=== PATIENT | male | born 1950 | race Caucasian/White ===

== ENCOUNTER 2024-06-13 11:48 | Inpatient (IN) | payer MEDICARE ==
[2024-06-13] VITALS (9 sets, daily range): BP systolic 117–146; BP diastolic 84–98; PULSE 98–121; RESP 17–28; TEMP 97.6–98.8; O2SAT 87–99
[~2024-06-13] VITALS: Ht 188 cm; Wt 117.9 kg
[2024-06-13 12:29] LABS: BASOPHILS % 0.3 % (0.0-1.0); EOSINOPHILS # (AUTO) 0.2 (0.0-0.4); EOSINOPHILS % 2.1 % (0.0-6.0); HEMATOCRIT 42.3 % (38.2-49.6); HEMOGLOBIN 13.6 g/dL (14.0-18.0); LYMPHOCYTES # (AUTO) 1.5 (1.0-3.2); LYMPHOCYTES % 21.4 % (18.0-39.1); MEAN CORPUSCULAR HEMOGLOBIN 27.7 pg (28-32); MEAN CORPUSCULAR HGB CONC 32.2 g/dL (31-35); MEAN CORPUSCULAR VOLUME 86.2 fL (81-99); MONOCYTES # (AUTO) 0.5 (0.2-0.8); MONOCYTES % 7.4 % (4.4-11.3); NEUTROPHILS # (AUTO) 4.8 (2.1-6.9); NEUTROPHILS % 68.4 % (38.7-80.0); PLATELET COUNT 154 x10e3/uL (140-360); RED BLOOD COUNT 4.91 x10e6/uL (4.3-5.7); RED CELL DISTRIBUTION WIDTH 14.6 % (11.7-14.4); WHITE BLOOD COUNT 7.02 x10e3/uL (4.8-10.8)
[2024-06-13 12:49] LABS: ALBUMIN 3.5 g/dL (3.5-5.0); ANION GAP 16.1 mmol/L (8-16); BILIRUBIN,TOTAL 1.1 mg/dL (0.2-1.2); CALCIUM 9.4 mg/dL (8.4-10.2); CREATININE, SERUM 2.18 mg/dL (0.72-1.25); MAGNESIUM 1.8 MG/DL (1.3-2.1); POTASSIUM 4.1 mmol/L (3.5-5.1)
[2024-06-13 12:50] LABS: INR 1.12; PROTHROMBIN TIME 15.1 seconds (11.9-14.5)
[2024-06-13 12:51] LABS: PARTIAL THROMBOPLASTIN TIME 27.5 seconds (23.8-35.5)
[2024-06-13] MEDS ORDERED: HEPARIN SOD/DEXTROSE 5% 25000 UNIT/250 ML BAG IV SCH (13:00)
[2024-06-13 13:03] LABS: TROPONIN I 0.656 ng/mL (0-0.300)
[2024-06-13] MEDS: HEPARIN SOD (PORCINE) 5,000 UNIT/ML VIAL IV ONE (13:12)
[2024-06-13] MEDS: AMIODARONE HCL 150 MG/100 ML BAG IV ONE (13:21)
[2024-06-13 13:28] LABS: INFLUENZA A AG NEGATIVE (NEGATIVE); INFLUENZA B AG NEGATIVE (NEGATIVE)
[2024-06-13 13:29] LABS: CORONAVIRUS COVID-19 AG NEGATIVE (NEGATIVE)
[2024-06-13] MEDS: DIGOXIN INJ 0.25 MG/ML 2 ML AMP IV ONE (13:55)
[2024-06-13] MEDS: ASPIRIN 81 MG CHEW TAB PO ONE (13:56)
[2024-06-13] MEDS: HEPARIN 25,000 UNIT/D5W 250ML 250 ML IV SCH (14:09)
[2024-06-13] MEDS: AMIODARONE 900MG 500 ML IV SCH (15:49)
[2024-06-13] MEDS: FUROSEMIDE INJ 10 MG/ML 4 ML VIAL IV SCH (17:04)
[2024-06-13] MEDS: METOPROLOL TARTRATE 25 MG TAB PO SCH (19:01)
[2024-06-13 19:57] LABS: CLARITY,URINE CLEAR (CLEAR); COLOR,URINE YELLOW (YELLOW); LEUKOCYTE ESTERASE ,URINE NEGATIVE (NEGATIVE); NITRITE,URINE NEGATIVE (NEGATIVE); PH,URINE 5.5 (5 - 7); PROTEIN,URINE DIPSTICK TRACE (NEGATIVE)
[2024-06-13 19:58] LABS: BILIRUBIN,URINE NEGATIVE (NEGATIVE); GLUCOSE, URINE NEGATIVE (NEGATIVE); KETONES,URINE NEGATIVE (NEGATIVE); URINE UROBILINOGEN 0.2 mg/dL (0.2 - 1)
[2024-06-13 20:19] LABS: TROPONIN I 0.679 ng/mL (0-0.300)
[2024-06-13 20:36] LABS: CREATININE,URINE RANDOM 188.73 mg/dL (63-166)
[2024-06-13 20:42] LABS: BACTERIA,URINE RARE /HPF; RBC,URINE 0-5 /HPF (0-5); WBC,URINE (MAN) 0-5 /HPF (0-5)
[2024-06-13] MEDS ORDERED: METOPROLOL TARTRATE INJ 1 MG/ML VIAL IV PRN (22:45)
[2024-06-13] MEDS ORDERED: ALBUTEROL/IPRATROPIUM 3 ML NEB NEB PRN (22:45)
[2024-06-13] MEDS ORDERED: DOCUSATE SODIUM 100 MG CAP PO PRN (22:45)
[2024-06-13] MEDS ORDERED: SIMETHICONE 80 MG CHEW PO PRN (22:45)
[2024-06-14] VITALS (20 sets, daily range): BP systolic 103–126; BP diastolic 78–103; PULSE 75–100; RESP 14–25; TEMP 97.8–98.6; O2SAT 97–100
[2024-06-14] MEDS: FAMOTIDINE 20 MG TAB PO ONE (06:41)
[2024-06-14 07:26] LABS: BASOPHILS % 0.4 % (0.0-1.0); EOSINOPHILS # (AUTO) 0.1 (0.0-0.4); EOSINOPHILS % 1.5 % (0.0-6.0); HEMATOCRIT 43.9 % (38.2-49.6); HEMOGLOBIN 13.9 g/dL (14.0-18.0); LYMPHOCYTES # (AUTO) 1.5 (1.0-3.2); LYMPHOCYTES % 19.3 % (18.0-39.1); MEAN CORPUSCULAR HGB CONC 31.7 g/dL (31-35); MEAN CORPUSCULAR VOLUME 88.3 fL (81-99); MONOCYTES # (AUTO) 0.6 (0.2-0.8); MONOCYTES % 7.8 % (4.4-11.3); NEUTROPHILS # (AUTO) 5.6 (2.1-6.9); NEUTROPHILS % 70.4 % (38.7-80.0); PLATELET COUNT 150 x10e3/uL (140-360); RED BLOOD COUNT 4.97 x10e6/uL (4.3-5.7); RED CELL DISTRIBUTION WIDTH 14.7 % (11.7-14.4); WHITE BLOOD COUNT 7.91 x10e3/uL (4.8-10.8)
[2024-06-14] MEDS ORDERED: FAMOTIDINE 20 MG TAB PO SCH (07:30)
[2024-06-14 08:04] LABS: ALBUMIN 3.5 g/dL (3.5-5.0); ANION GAP 17.8 mmol/L (8-16); BILIRUBIN,TOTAL 1.5 mg/dL (0.2-1.2); CALCIUM 9.3 mg/dL (8.4-10.2); CREATININE, SERUM 2.55 mg/dL (0.72-1.25); POTASSIUM 4.8 mmol/L (3.5-5.1)
[2024-06-14 08:15] LABS: MAGNESIUM 1.8 MG/DL (1.3-2.1); PHOSPHORUS 4.1 MG/DL (2.3-4.7)
[2024-06-14 08:20] LABS: CHOL/HDL RATIO 3.7 (3.9-4.7)
[2024-06-14 08:34] LABS: TROPONIN I 0.71 ng/mL (0-0.300)
[2024-06-14] MEDS: ASPIRIN 325 MG TAB EC PO SCH (09:27)
[2024-06-14] MEDS: FUROSEMIDE INJ 100 MG in SODIUM CHLORIDE 0.9% 90 ML IV SCH (09:28)
[2024-06-14] MEDS: AMIODARONE HCL 200 MG TAB PO SCH (16:40)
[2024-06-14] MEDS ORDERED: DEXTROSE 50% SYRINGE 50 ML IV PRN (22:15)
[2024-06-14] MEDS ORDERED: ALBUMIN 25% 25GM 100ML 0.25 GM/ML BTL IV STA (22:17)
[2024-06-14] MEDS: ALBUMIN 25% 25GM 100ML 0.25 GM/ML BTL IV SCH (22:51)
[2024-06-14] MEDS: INSULIN REGULAR, HUMAN 100 UNIT/1 ML SQ SCH (23:45)
[2024-06-15] VITALS (20 sets, daily range): BP systolic 119–139; BP diastolic 50–104; PULSE 39–115; RESP 16–28; TEMP 97.5–98; O2SAT 94–100
[2024-06-15] MEDS ORDERED: ALBUMIN 25% 12.5GM 0.25 GM/ML BTL IV SCH (04:00)
[2024-06-15 06:52] LABS: BASOPHILS % 0.4 % (0.0-1.0); EOSINOPHILS % 0.3 % (0.0-6.0); HEMATOCRIT 46.2 % (38.2-49.6); HEMOGLOBIN 14.2 g/dL (14.0-18.0); LYMPHOCYTES # (AUTO) 2.1 (1.0-3.2); MEAN CORPUSCULAR HEMOGLOBIN 28.3 pg (28-32); MEAN CORPUSCULAR HGB CONC 30.7 g/dL (31-35); MONOCYTES # (AUTO) 0.9 (0.2-0.8); MONOCYTES % 10.2 % (4.4-11.3); NEUTROPHILS # (AUTO) 5.9 (2.1-6.9); NEUTROPHILS % 65.7 % (38.7-80.0); PLATELET COUNT 142 x10e3/uL (140-360); RED BLOOD COUNT 5.02 x10e6/uL (4.3-5.7); WHITE BLOOD COUNT 8.96 x10e3/uL (4.8-10.8)
[2024-06-15] MEDS: ALBUMIN 25% 25GM 100ML 0.25 GM/ML BTL IV SCH (07:11)
[2024-06-15 07:21] LABS: ALBUMIN 3.6 g/dL (3.5-5.0); ALBUMIN/GLOBULIN RATIO 1.1 (0.8-2.0); ANION GAP 21.1 mmol/L (8-16); BILIRUBIN,TOTAL 1.6 mg/dL (0.2-1.2); CALCIUM 9.2 mg/dL (8.4-10.2); CREATININE, SERUM 3.48 mg/dL (0.72-1.25); POTASSIUM 5.1 mmol/L (3.5-5.1); TOTAL PROTEIN 6.8 g/dL (6.5-8.1)
[2024-06-15] MEDS ORDERED: INSULIN REGULAR, HUMAN 100 UNIT/1 ML SQ SCH (07:30)
[2024-06-15] MEDS: FAMOTIDINE 20 MG TAB PO SCH (09:28)
[2024-06-15] MEDS ORDERED: DOBUtamine HCL 500MG/D5W 250ML 250 ML IV SCH (10:45)
[2024-06-15] MEDS ORDERED: LIDOCAINE HCL 1% 30ML-PF VIAL ONE (10:54)
[2024-06-15] MEDS ORDERED: HEPARIN SOD (PORCINE) 1000 UNIT/ML SDV ONE (11:26)
[2024-06-15] MEDS: DOBUtamine HCL 500MG/D5W 250ML 250 ML IV SCH ×2 (14:34→18:55)
[2024-06-15] MEDS ORDERED: HEPARIN SOD (PORCINE) 1000 UNIT/ML SDV IV PRN (15:00)
[2024-06-15] MEDS ORDERED: MANNITOL 25% 12.5GM/50 ML VIAL IV PRN (15:00)
[2024-06-15] MEDS ORDERED: SODIUM CHLORIDE 0.9% 1000ML 2,000 ML IV PRN (15:00)
[2024-06-15] MEDS: OXYBUTYNIN CHLORIDE XL 5 MG TAB PO SCH (15:55)
[2024-06-15] MEDS ORDERED: PHENAZOPYRIDINE HCL 100 MG TAB PO SCH (17:00)
[2024-06-15] MEDS: Morphine 2mg Syringe 2 MG/ML SYR IV PRN (21:55)
[2024-06-15] MEDS: ONDANSETRON HCL INJ 2MG/ML 2ML 2 MG/ML VIAL IV PRN (21:55)
[2024-06-15] MEDS: ACETAMINOPHEN 325 MG TAB PO PRN (21:59)
[2024-06-16] VITALS (35 sets, daily range): BP systolic 110–146; BP diastolic 63–115; PULSE 78–104; RESP 15–26; TEMP 97.4–98.5; O2SAT 91–100
[2024-06-16 06:40] LABS: BASOPHILS % 0.3 % (0.0-1.0); EOSINOPHILS # (AUTO) 0.1 (0.0-0.4); EOSINOPHILS % 1.5 % (0.0-6.0); HEMATOCRIT 37.1 % (38.2-49.6); HEMOGLOBIN 12.1 g/dL (14.0-18.0); LYMPHOCYTES # (AUTO) 1.8 (1.0-3.2); LYMPHOCYTES % 27.4 % (18.0-39.1); MEAN CORPUSCULAR HGB CONC 32.6 g/dL (31-35); MEAN CORPUSCULAR VOLUME 85.9 fL (81-99); MONOCYTES # (AUTO) 0.6 (0.2-0.8); MONOCYTES % 9.1 % (4.4-11.3); NEUTROPHILS % 61.2 % (38.7-80.0); PLATELET COUNT 129 x10e3/uL (140-360); RED BLOOD COUNT 4.32 x10e6/uL (4.3-5.7); RED CELL DISTRIBUTION WIDTH 14.6 % (11.7-14.4); WHITE BLOOD COUNT 6.58 x10e3/uL (4.8-10.8)
[2024-06-16 07:15] LABS: ALBUMIN 3.6 g/dL (3.5-5.0); ALBUMIN/GLOBULIN RATIO 1.3 (0.8-2.0); ANION GAP 17.9 mmol/L (8-16); BILIRUBIN,TOTAL 1.3 mg/dL (0.2-1.2); CREATININE, SERUM 3.28 mg/dL (0.72-1.25); POTASSIUM 3.9 mmol/L (3.5-5.1); TOTAL PROTEIN 6.3 g/dL (6.5-8.1)
[2024-06-16] MEDS: OXYBUTYNIN CHLORIDE 5 MG TAB PO SCH (08:34)
[2024-06-16 10:42] LABS: HEPATITIS B CORE AB TOTAL NEGATIVE; HEPATITIS B SURFACE AG (P) NEGATIVE
[2024-06-16 10:43] LABS: HEPATITIS B SURFACE AB QUANT <3.5
[2024-06-17] VITALS (20 sets, daily range): BP systolic 97–163; BP diastolic 56–100; PULSE 81–109; RESP 12–33; TEMP 98.1–98.3; O2SAT 90–98
[2024-06-17] MEDS: SENNOSIDES 8.6 MG TAB PO SCH (08:20)
[2024-06-17] MEDS: DOCUSATE SODIUM 100 MG CAP PO SCH (08:21)
[2024-06-17] MEDS: PSYLLIUM 6GM PACKET PO SCH (08:22)
[2024-06-17] MEDS: GUAIFENESIN/CODEINE 5 ML LIQD PO PRN (10:55)
[2024-06-18] VITALS (24 sets, daily range): BP systolic 110–182; BP diastolic 72–130; PULSE 56–122; RESP 11–26; TEMP 97.6–98.4; O2SAT 90–97
[2024-06-18 06:52] LABS: BASOPHILS % 0.3 % (0.0-1.0); EOSINOPHILS # (AUTO) 0.1 (0.0-0.4); EOSINOPHILS % 1.5 % (0.0-6.0); HEMATOCRIT 36.9 % (38.2-49.6); LYMPHOCYTES # (AUTO) 1.3 (1.0-3.2); LYMPHOCYTES % 18.4 % (18.0-39.1); MEAN CORPUSCULAR HEMOGLOBIN 28.1 pg (28-32); MEAN CORPUSCULAR HGB CONC 32.5 g/dL (31-35); MEAN CORPUSCULAR VOLUME 86.4 fL (81-99); MONOCYTES # (AUTO) 0.7 (0.2-0.8); MONOCYTES % 10.8 % (4.4-11.3); NEUTROPHILS # (AUTO) 4.7 (2.1-6.9); NEUTROPHILS % 68.6 % (38.7-80.0); PLATELET COUNT 120 x10e3/uL (140-360); RED BLOOD COUNT 4.27 x10e6/uL (4.3-5.7); RED CELL DISTRIBUTION WIDTH 14.7 % (11.7-14.4); WHITE BLOOD COUNT 6.85 x10e3/uL (4.8-10.8)
[2024-06-18 07:07] LABS: ALBUMIN 3.4 g/dL (3.5-5.0); ALBUMIN/GLOBULIN RATIO 1.2 (0.8-2.0); ANION GAP 17.1 mmol/L (8-16); BILIRUBIN,TOTAL 1.7 mg/dL (0.2-1.2); CALCIUM 9.3 mg/dL (8.4-10.2); CREATININE, SERUM 2.38 mg/dL (0.72-1.25); POTASSIUM 4.1 mmol/L (3.5-5.1); TOTAL PROTEIN 6.3 g/dL (6.5-8.1)
[2024-06-18 07:27] LABS: MAGNESIUM 1.8 MG/DL (1.3-2.1); PHOSPHORUS 3.4 MG/DL (2.3-4.7)
[2024-06-18] MEDS ORDERED: ALBUMIN 25% 12.5GM 0.25 GM/ML BTL IV PRN (09:15)
[2024-06-18] MEDS ORDERED: HEPARIN SOD (PORCINE) 1000 UNIT/ML SDV IV PRN (09:15)
[2024-06-18] MEDS: HEPARIN 25,000 UNIT/D5W 250ML 250 ML IV SCH (09:30)
[2024-06-19] VITALS (12 sets, daily range): BP systolic 117–141; BP diastolic 64–93; PULSE 86–103; RESP 12–21; TEMP 97.5–98.5; O2SAT 92–99
[2024-06-20] VITALS (8 sets, daily range): BP systolic 110–133; BP diastolic 68–89; PULSE 86–96; RESP 15–20; TEMP 97.7–97.9; O2SAT 95–99
[2024-06-20 05:39] LABS: BASOPHILS % 0.3 % (0.0-1.0); EOSINOPHILS # (AUTO) 0.2 (0.0-0.4); EOSINOPHILS % 2.7 % (0.0-6.0); HEMATOCRIT 37.3 % (38.2-49.6); HEMOGLOBIN 12.3 g/dL (14.0-18.0); LYMPHOCYTES # (AUTO) 1.6 (1.0-3.2); LYMPHOCYTES % 22.4 % (18.0-39.1); MEAN CORPUSCULAR HEMOGLOBIN 28.5 pg (28-32); MEAN CORPUSCULAR VOLUME 86.5 fL (81-99); MONOCYTES # (AUTO) 0.8 (0.2-0.8); MONOCYTES % 11.2 % (4.4-11.3); NEUTROPHILS # (AUTO) 4.5 (2.1-6.9); PLATELET COUNT 122 x10e3/uL (140-360); RED BLOOD COUNT 4.31 x10e6/uL (4.3-5.7); RED CELL DISTRIBUTION WIDTH 14.5 % (11.7-14.4); WHITE BLOOD COUNT 7.14 x10e3/uL (4.8-10.8)
[2024-06-20 06:24] LABS: ALBUMIN 3.2 g/dL (3.5-5.0); BILIRUBIN,TOTAL 1.3 mg/dL (0.2-1.2); CALCIUM 9.6 mg/dL (8.4-10.2); CREATININE, SERUM 2.47 mg/dL (0.72-1.25); MAGNESIUM 1.9 MG/DL (1.3-2.1); PHOSPHORUS 4.2 MG/DL (2.3-4.7); TOTAL PROTEIN 6.4 g/dL (6.5-8.1)
[2024-06-20] MEDS: SODIUM CHLORIDE 0.9% 1000ML 2,000 ML ONE (07:41)
[2024-06-20] MEDS: INSULIN LISPRO 100 UNIT/1 ML 3ML VIAL SQ SCH (08:13)
[2024-06-20] MEDS: Morphine 2mg Syringe 2 MG/ML SYR IV PRN (15:33)
[2024-06-21] VITALS (12 sets, daily range): BP systolic 107–130; BP diastolic 69–86; PULSE 84–104; RESP 17–20; TEMP 97.5–97.8; O2SAT 97–100
[2024-06-21 07:09] LABS: ANION GAP 17.4 mmol/L (8-16); CALCIUM 9.3 mg/dL (8.4-10.2); CREATININE, SERUM 2.51 mg/dL (0.72-1.25); POTASSIUM 4.4 mmol/L (3.5-5.1)
[2024-06-21] MEDS: SODIUM CHLORIDE 0.9% 1000ML 1,000 ML IV SCH (08:40)
[2024-06-21] MEDS: FUROSEMIDE INJ 10 MG/ML 2 ML VIAL IV ONE (15:05)
[2024-06-22] VITALS (10 sets, daily range): BP systolic 109–143; BP diastolic 68–93; PULSE 87–96; RESP 18; TEMP 97.3–97.9; O2SAT 96–100
[2024-06-22] MEDS: MELATONIN 3 MG TAB PO PRN (00:51)
[2024-06-22 06:42] LABS: BASOPHILS % 0.4 % (0.0-1.0); EOSINOPHILS # (AUTO) 0.2 (0.0-0.4); HEMATOCRIT 36.6 % (38.2-49.6); HEMOGLOBIN 11.9 g/dL (14.0-18.0); LYMPHOCYTES # (AUTO) 1.5 (1.0-3.2); LYMPHOCYTES % 21.2 % (18.0-39.1); MEAN CORPUSCULAR HEMOGLOBIN 28.6 pg (28-32); MEAN CORPUSCULAR HGB CONC 32.5 g/dL (31-35); MONOCYTES # (AUTO) 0.8 (0.2-0.8); MONOCYTES % 11.7 % (4.4-11.3); NEUTROPHILS # (AUTO) 4.4 (2.1-6.9); NEUTROPHILS % 63.1 % (38.7-80.0); PLATELET COUNT 126 x10e3/uL (140-360); RED BLOOD COUNT 4.16 x10e6/uL (4.3-5.7); RED CELL DISTRIBUTION WIDTH 14.4 % (11.7-14.4); WHITE BLOOD COUNT 7.02 x10e3/uL (4.8-10.8)
[2024-06-22 07:08] LABS: ANION GAP 16.8 mmol/L (8-16); CREATININE, SERUM 2.47 mg/dL (0.72-1.25); POTASSIUM 4.8 mmol/L (3.5-5.1)
[2024-06-22] MEDS: FUROSEMIDE INJ 10 MG/ML 4 ML VIAL IV ONE (09:31)
[2024-06-23] VITALS (12 sets, daily range): BP systolic 105–153; BP diastolic 78–94; PULSE 48–102; RESP 17–21; TEMP 97.6–97.9; O2SAT 97–100
[2024-06-23 14:47] LABS: ANION GAP 16.6 mmol/L (8-16); CALCIUM 9.4 mg/dL (8.4-10.2); CREATININE, SERUM 2.33 mg/dL (0.72-1.25); POTASSIUM 4.6 mmol/L (3.5-5.1)
[2024-06-24] VITALS (10 sets, daily range): BP systolic 101–140; BP diastolic 66–84; PULSE 51–100; RESP 16–20; TEMP 97.5–98; O2SAT 93–100
[2024-06-24 06:51] LABS: BASOPHILS % 0.3 % (0.0-1.0); EOSINOPHILS # (AUTO) 0.2 (0.0-0.4); EOSINOPHILS % 2.1 % (0.0-6.0); HEMATOCRIT 34.9 % (38.2-49.6); HEMOGLOBIN 11.4 g/dL (14.0-18.0); LYMPHOCYTES # (AUTO) 1.5 (1.0-3.2); LYMPHOCYTES % 19.5 % (18.0-39.1); MEAN CORPUSCULAR HEMOGLOBIN 28.3 pg (28-32); MEAN CORPUSCULAR HGB CONC 32.7 g/dL (31-35); MEAN CORPUSCULAR VOLUME 86.6 fL (81-99); MONOCYTES # (AUTO) 0.8 (0.2-0.8); MONOCYTES % 10.5 % (4.4-11.3); NEUTROPHILS # (AUTO) 5.2 (2.1-6.9); NEUTROPHILS % 67.2 % (38.7-80.0); PLATELET COUNT 137 x10e3/uL (140-360); RED BLOOD COUNT 4.03 x10e6/uL (4.3-5.7); RED CELL DISTRIBUTION WIDTH 14.1 % (11.7-14.4); WHITE BLOOD COUNT 7.68 x10e3/uL (4.8-10.8)
[2024-06-24 07:23] LABS: ALBUMIN/GLOBULIN RATIO 0.9 (0.8-2.0); ANION GAP 17.4 mmol/L (8-16); BILIRUBIN,TOTAL 0.9 mg/dL (0.2-1.2); CREATININE, SERUM 1.94 mg/dL (0.72-1.25); POTASSIUM 4.4 mmol/L (3.5-5.1); TOTAL PROTEIN 6.4 g/dL (6.5-8.1)
[2024-06-24] MEDS: OMEPRAZOLE 20 MG CAP PO SCH (13:10)
[2024-06-25] VITALS (10 sets, daily range): BP systolic 111–130; BP diastolic 68–91; PULSE 51–94; RESP 18–20; TEMP 97.5–97.9; O2SAT 92–100
[2024-06-25 07:02] LABS: ANION GAP 16.4 mmol/L (8-16); POTASSIUM 4.4 mmol/L (3.5-5.1)
[2024-06-25 07:03] LABS: CALCIUM 9.3 mg/dL (8.4-10.2); CREATININE, SERUM 2.15 mg/dL (0.72-1.25); MAGNESIUM 1.6 MG/DL (1.3-2.1); PHOSPHORUS 3.4 MG/DL (2.3-4.7)
[2024-06-25] MEDS: METOPROLOL SUCCINATE 50 MG TAB XL PO SCH (09:00)
[2024-06-25 09:10] LABS: INR 1.05; PROTHROMBIN TIME 14.3 seconds (11.9-14.5)
[2024-06-25] MEDS: FUROSEMIDE INJ 10 MG/ML 4 ML VIAL IV SCH (09:54)
[2024-06-25] MEDS ORDERED: HEPARIN SOD (PORCINE) 1000 UNIT/ML SDV IV PRN (19:45)
[2024-06-26] VITALS (11 sets, daily range): BP systolic 99–130; BP diastolic 64–79; PULSE 76–92; RESP 17–20; TEMP 97.5–97.9; O2SAT 96–100
[2024-06-26 12:14] LABS: ANION GAP 16.5 mmol/L (8-16); CALCIUM 9.6 mg/dL (8.4-10.2); CREATININE, SERUM 2.56 mg/dL (0.72-1.25); POTASSIUM 4.5 mmol/L (3.5-5.1)
[2024-06-26] MEDS: CHLORASEPTIC SPRAY 177 ML BTL MM PRN (15:21)
[2024-06-26] MEDS: SODIUM CHLORIDE 0.9% 1000ML 1,000 ML IV SCH (21:36)
[2024-06-27] VITALS (12 sets, daily range): BP systolic 93–119; BP diastolic 6–75; PULSE 66–79; RESP 18–20; TEMP 97.5–98; O2SAT 95–100
[2024-06-27] MEDS: Morphine 2mg Syringe 2 MG/ML SYR IV PRN (01:30)
[2024-06-27 06:22] LABS: BASOPHILS % 0.4 % (0.0-1.0); EOSINOPHILS # (AUTO) 0.2 (0.0-0.4); EOSINOPHILS % 2.7 % (0.0-6.0); HEMATOCRIT 35.9 % (38.2-49.6); HEMOGLOBIN 11.6 g/dL (14.0-18.0); LYMPHOCYTES # (AUTO) 1.7 (1.0-3.2); LYMPHOCYTES % 23.2 % (18.0-39.1); MEAN CORPUSCULAR HEMOGLOBIN 27.9 pg (28-32); MEAN CORPUSCULAR HGB CONC 32.3 g/dL (31-35); MEAN CORPUSCULAR VOLUME 86.3 fL (81-99); MONOCYTES # (AUTO) 0.8 (0.2-0.8); NEUTROPHILS # (AUTO) 4.5 (2.1-6.9); PLATELET COUNT 151 x10e3/uL (140-360); RED BLOOD COUNT 4.16 x10e6/uL (4.3-5.7); WHITE BLOOD COUNT 7.29 x10e3/uL (4.8-10.8)
[2024-06-27 06:52] LABS: ANION GAP 16.7 mmol/L (8-16); CALCIUM 9.1 mg/dL (8.4-10.2); CREATININE, SERUM 2.56 mg/dL (0.72-1.25); MAGNESIUM 1.5 MG/DL (1.3-2.1); PHOSPHORUS 4.5 MG/DL (2.3-4.7); POTASSIUM 4.7 mmol/L (3.5-5.1)
[2024-06-27] MEDS: METOPROLOL SUCCINATE 50 MG TAB XL PO SCH (09:00)
[2024-06-27] MEDS ORDERED: MAGNESIUM SULFATE 2GM/50ML IV ONE (12:00)
[2024-06-27] MEDS: CHLORASEPTIC SPRAY 177 ML BTL MM PRN (12:21)
[2024-06-27] MEDS: NYSTATIN SUSPENSION 5 ML UDC PO SCH (12:21)
[2024-06-27] MEDS: MAGNESIUM SULFATE 2GM/50ML 50 ML IV ONE (12:21)
[2024-06-27] MEDS: ALBUMIN 25% 12.5GM 50ML 100 ML IV ONE (15:33)
[2024-06-27] MEDS: HEPARIN SOD (PORCINE) 1000 UNIT/ML SDV ONE (15:34)
[2024-06-27] MEDS: MANNITOL 25% 12.5GM/50ML 0 ML ONE (15:34)
[2024-06-28] VITALS (9 sets, daily range): BP systolic 98–137; BP diastolic 62–90; PULSE 72–100; RESP 18–20; TEMP 97.3–98.7; O2SAT 95–100
[2024-06-28 06:59] LABS: ANION GAP 18.9 mmol/L (8-16); CREATININE, SERUM 2.83 mg/dL (0.72-1.25); POTASSIUM 4.9 mmol/L (3.5-5.1)
[2024-06-29] VITALS (10 sets, daily range): BP systolic 107–141; BP diastolic 65–83; PULSE 69–93; RESP 18–22; TEMP 97.5–98.1; O2SAT 95–100
[2024-06-29 06:13] LABS: BASOPHILS % 0.4 % (0.0-1.0); EOSINOPHILS # (AUTO) 0.2 (0.0-0.4); HEMATOCRIT 35.6 % (38.2-49.6); HEMOGLOBIN 11.6 g/dL (14.0-18.0); LYMPHOCYTES # (AUTO) 1.4 (1.0-3.2); LYMPHOCYTES % 18.8 % (18.0-39.1); MEAN CORPUSCULAR HEMOGLOBIN 27.9 pg (28-32); MEAN CORPUSCULAR HGB CONC 32.6 g/dL (31-35); MEAN CORPUSCULAR VOLUME 85.6 fL (81-99); MONOCYTES # (AUTO) 0.8 (0.2-0.8); MONOCYTES % 10.1 % (4.4-11.3); NEUTROPHILS # (AUTO) 5.2 (2.1-6.9); NEUTROPHILS % 67.9 % (38.7-80.0); PLATELET COUNT 152 x10e3/uL (140-360); RED BLOOD COUNT 4.16 x10e6/uL (4.3-5.7); WHITE BLOOD COUNT 7.62 x10e3/uL (4.8-10.8)
[2024-06-29 06:29] LABS: INR 1.08; PROTHROMBIN TIME 14.7 seconds (11.9-14.5)
[2024-06-29 06:35] LABS: ANION GAP 16.4 mmol/L (8-16); CREATININE, SERUM 2.9 mg/dL (0.72-1.25); MAGNESIUM 1.6 MG/DL (1.3-2.1); PHOSPHORUS 4.4 MG/DL (2.3-4.7); POTASSIUM 4.4 mmol/L (3.5-5.1)
[2024-06-29] MEDS ORDERED: SODIUM CHLORIDE 0.9% 500ML 500 ML ONE (09:00)
[2024-06-29] MEDS ORDERED: LIDOCAINE HCL 1% 30ML-PF VIAL ONE (09:00)
[2024-06-29] MEDS ORDERED: SODIUM CHLORIDE 0.9% 250ML 250 ML ONE (09:35)
[2024-06-29] MEDS ORDERED: FENTANYL CITRATE/PF 100MCG/2 ML INJ ONE (09:35)
[2024-06-29] MEDS ORDERED: MIDAZOLAM HCL 2 MG/2 ML VIAL ONE (09:35)
[2024-06-29] MEDS ORDERED: HEPARIN SOD (PORCINE) 1000 UNIT/ML SDV ONE (09:43)
[2024-06-29] MEDS: HEPARIN SOD (PORCINE) 1000 UNIT/ML SDV ONE (17:39)
[2024-06-29] MEDS: FUROSEMIDE 40 MG TAB PO SCH (18:00)
[2024-06-29] MEDS ORDERED: HEPARIN SOD (PORCINE) 1000 UNIT/ML SDV IV PRN ×4 (18:00→20:15)
[2024-06-30] VITALS (10 sets, daily range): BP systolic 101–126; BP diastolic 60–77; PULSE 75–102; RESP 17–20; TEMP 97.7–98.1; O2SAT 95–99
[2024-06-30 08:28] LABS: ANION GAP 14.9 mmol/L (8-16); CALCIUM 8.7 mg/dL (8.4-10.2); CREATININE, SERUM 2.07 mg/dL (0.72-1.25); POTASSIUM 3.9 mmol/L (3.5-5.1)
[2024-07-01] VITALS (10 sets, daily range): BP systolic 107–122; BP diastolic 63–79; PULSE 72–93; RESP 17–19; TEMP 97.3–97.9; O2SAT 95–100
[2024-07-02] VITALS (13 sets, daily range): BP systolic 103–127; BP diastolic 58–81; PULSE 59–94; RESP 16–19; TEMP 97.2–98.8; O2SAT 94–100
[2024-07-02] MEDS ORDERED: LIDOCAINE JELLY 2% 10ML URO-JET TOP PRN (10:30)
[2024-07-02] MEDS: LIDOCAINE HCL 5% OINMENT 35.44 GM TUBE TP PRN (11:44)
[2024-07-02] MEDS ORDERED: HEPARIN SOD (PORCINE) 1000 UNIT/ML SDV IV PRN ×2 (13:15)
[2024-07-02 13:27] LABS: ANION GAP 14.9 mmol/L (8-16); CALCIUM 9.4 mg/dL (8.4-10.2); CREATININE, SERUM 2.06 mg/dL (0.72-1.25); POTASSIUM 3.9 mmol/L (3.5-5.1)
[2024-07-02] MEDS: SODIUM CHLORIDE 0.9% 1000ML 2,000 ML ONE (14:57)
[2024-07-02] MEDS: HEPARIN SOD (PORCINE) 1000 UNIT/ML SDV ONE (14:57)
[2024-07-02] MEDS ORDERED: ALTEPLASE RECOMBINANT 2 MG/2 ML VIAL IV PRN (15:35)
[2024-07-02] MEDS ORDERED: LIDOCAINE HCL 5% OINMENT 35.44 GM TUBE TP PRN (17:00)
[2024-07-03] VITALS (9 sets, daily range): BP systolic 110–126; BP diastolic 66–88; PULSE 64–107; RESP 18–19; TEMP 97.1–98.6; O2SAT 96–100
[2024-07-03 06:36] LABS: BASOPHILS % 0.6 % (0.0-1.0); EOSINOPHILS # (AUTO) 0.2 (0.0-0.4); EOSINOPHILS % 2.9 % (0.0-6.0); HEMATOCRIT 36.7 % (38.2-49.6); HEMOGLOBIN 11.8 g/dL (14.0-18.0); LYMPHOCYTES # (AUTO) 1.6 (1.0-3.2); LYMPHOCYTES % 21.9 % (18.0-39.1); MEAN CORPUSCULAR HGB CONC 32.2 g/dL (31-35); MEAN CORPUSCULAR VOLUME 87.2 fL (81-99); MONOCYTES # (AUTO) 0.7 (0.2-0.8); MONOCYTES % 9.2 % (4.4-11.3); NEUTROPHILS # (AUTO) 4.6 (2.1-6.9); NEUTROPHILS % 64.7 % (38.7-80.0); PLATELET COUNT 169 x10e3/uL (140-360); RED BLOOD COUNT 4.21 x10e6/uL (4.3-5.7); RED CELL DISTRIBUTION WIDTH 14.5 % (11.7-14.4); WHITE BLOOD COUNT 7.17 x10e3/uL (4.8-10.8)
[2024-07-03 07:05] LABS: ANION GAP 16.1 mmol/L (8-16); CREATININE, SERUM 2.03 mg/dL (0.72-1.25); POTASSIUM 4.1 mmol/L (3.5-5.1)
[2024-07-03] MEDS: HEPARIN SOD (PORCINE) 1000 UNIT/ML SDV ONE (09:08)
[2024-07-03] MEDS ORDERED: HEPARIN SOD (PORCINE) 1000 UNIT/ML SDV IV PRN (12:30)
[2024-07-04] VITALS (7 sets, daily range): BP systolic 103–131; BP diastolic 69–88; PULSE 84–93; RESP 20; TEMP 97.3–97.8; O2SAT 95–100
[2024-07-04 06:21] LABS: BASOPHILS % 0.6 % (0.0-1.0); EOSINOPHILS # (AUTO) 0.2 (0.0-0.4); EOSINOPHILS % 3.2 % (0.0-6.0); HEMATOCRIT 36.7 % (38.2-49.6); HEMOGLOBIN 11.9 g/dL (14.0-18.0); LYMPHOCYTES # (AUTO) 1.6 (1.0-3.2); LYMPHOCYTES % 23.9 % (18.0-39.1); MEAN CORPUSCULAR HEMOGLOBIN 28.3 pg (28-32); MEAN CORPUSCULAR HGB CONC 32.4 g/dL (31-35); MEAN CORPUSCULAR VOLUME 87.4 fL (81-99); MONOCYTES # (AUTO) 0.6 (0.2-0.8); NEUTROPHILS # (AUTO) 4.1 (2.1-6.9); NEUTROPHILS % 62.5 % (38.7-80.0); PLATELET COUNT 148 x10e3/uL (140-360); RED CELL DISTRIBUTION WIDTH 14.2 % (11.7-14.4); WHITE BLOOD COUNT 6.48 x10e3/uL (4.8-10.8)
[2024-07-04 06:56] LABS: ANION GAP 14.9 mmol/L (8-16); CALCIUM 9.1 mg/dL (8.4-10.2); CREATININE, SERUM 1.98 mg/dL (0.72-1.25); MAGNESIUM 1.5 MG/DL (1.3-2.1); PHOSPHORUS 3.3 MG/DL (2.3-4.7); POTASSIUM 3.9 mmol/L (3.5-5.1)
[2024-07-04] MEDS ORDERED: FUROSEMIDE40 MG PO (15:22)
[2024-07-04] MEDS ORDERED: OMEPRAZOLE20 MG PO (15:22)
[2024-07-04] MEDS ORDERED: AMIODARONE HCL200 MG PO (15:22)
[2024-07-04] MEDS ORDERED: TOPROL XL50 MG PO (15:22)
[2024-07-04] MEDS ORDERED: CEPHALEXIN500 MG PO (15:22)
[2024-07-04] MEDS ORDERED: Docusate Sodium PO (15:22)
[2024-07-04] MEDS ORDERED: OXYBUTYNIN CHLOR5 MG PO (15:22)
[2024-07-04] MEDS ORDERED: SENOKOT8.6 MG PO (15:22)
[2024-07-04] MEDS ORDERED: Psyllium PO (15:22)
[2024-07-04] MEDS ORDERED: Insulin Lispro SQ (15:22)
[2024-07-04] MEDS: CEPHALEXIN 500 MG CAP PO SCH (17:11)
[2024-07-04] MEDS ORDERED: HEPARIN SOD (PORCINE) 1000 UNIT/ML SDV IV PRN (18:45)
== END 2024-07-04 23:03 | disposition home health service (06) | DRG 673 ==
LOC: ER 11:54 → ERHOLD 13:39 → ICU 20:05 → MED/SURG3 06-19 23:55
PROVIDERS: ADMIT Internal Medicine; ATTEND Internal Medicine
PROC: 5A1D70Z Performance of Urinary Filtration, Intermittent, Less than 6 Hours Per Day (ICD-10-PCS; 2024-06-15)
PROC: 02HV33Z Insertion of Infusion Device into Superior Vena Cava, Percutaneous Approach (ICD-10-PCS; 2024-06-15)
PROC: B5181ZA Fluoroscopy of Superior Vena Cava using Low Osmolar Contrast, Guidance (ICD-10-PCS; 2024-06-15)
PROC: 5A1D70Z Performance of Urinary Filtration, Intermittent, Less than 6 Hours Per Day (ICD-10-PCS; 2024-06-16)
PROC: 5A1D70Z Performance of Urinary Filtration, Intermittent, Less than 6 Hours Per Day (ICD-10-PCS; 2024-06-22)
PROC: 0JH63XZ Insertion of Tunneled Vascular Access Device into Chest Subcutaneous Tissue and Fascia, Percutaneous Approach (ICD-10-PCS; principal; 2024-06-29)
PROC: 02H633Z Insertion of Infusion Device into Right Atrium, Percutaneous Approach (ICD-10-PCS; 2024-06-29)
PROC: B5181ZA Fluoroscopy of Superior Vena Cava using Low Osmolar Contrast, Guidance (ICD-10-PCS; 2024-06-29)
PROC: 5A1D70Z Performance of Urinary Filtration, Intermittent, Less than 6 Hours Per Day (ICD-10-PCS; 2024-06-29)
PROC: 02PYX3Z Removal of Infusion Device from Great Vessel, External Approach (ICD-10-PCS; 2024-06-29)
PROC: 5A1D70Z Performance of Urinary Filtration, Intermittent, Less than 6 Hours Per Day (ICD-10-PCS; 2024-07-03)
PROC: 5A1D70Z Performance of Urinary Filtration, Intermittent, Less than 6 Hours Per Day (ICD-10-PCS; 2024-07-04)
DX: N17.0 Acute kidney failure with tubular necrosis (principal); I21.A1 Myocardial infarction type 2; I50.23 Acute on chronic systolic (congestive) heart failure; R57.0 Cardiogenic shock; J81.1 Chronic pulmonary edema; N39.0 Urinary tract infection, site not specified; J91.8 Pleural effusion in other conditions classified elsewhere; D68.9 Coagulation defect, unspecified; R18.8 Other ascites; E87.1 Hypo-osmolality and hyponatremia; I42.8 Other cardiomyopathies; I13.0 Hypertensive heart and chronic kidney disease with heart failure and stage 1 through stage 4 chronic kidney disease, or unspecified chronic kidney disease; I48.0 Paroxysmal atrial fibrillation; K21.9 Gastro-esophageal reflux disease without esophagitis; M10.9 Gout, unspecified; E78.5 Hyperlipidemia, unspecified; R00.0 Tachycardia, unspecified; E11.22 Type 2 diabetes mellitus with diabetic chronic kidney disease; N18.9 Chronic kidney disease, unspecified; F17.210 Nicotine dependence, cigarettes, uncomplicated; K59.00 Constipation, unspecified; N50.89 Other specified disorders of the male genital organs; N48.89 Other specified disorders of penis; E66.9 Obesity, unspecified; Z68.30 Body mass index [BMI] 30.0-30.9, adult; B95.5 Unspecified streptococcus as the cause of diseases classified elsewhere; E87.5 Hyperkalemia; R31.0 Gross hematuria; D69.6 Thrombocytopenia, unspecified; N47.1 Phimosis; E86.9 Volume depletion, unspecified; D63.8 Anemia in other chronic diseases classified elsewhere; I95.9 Hypotension, unspecified; E87.8 Other disorders of electrolyte and fluid balance, not elsewhere classified; Z79.899 Other long term (current) drug therapy; Z79.4 Long term (current) use of insulin
CPT/HCPCS: 36415; 36556; 36558; 71045; 74176; 74470; 76770; 76937; 77001; 80048; 80053; 80061; 81001; 82550; 82570; 82948; 83735; 83880; 84100; 84300; 84484; 85025; 85610; 85730; 86704; 86706; 87070; 87186; 87205; 87340; 93005; 93306; 93970; 94799; 96372; 99152; 99252; 99284; C1752; C1769; C1892; J0690; J1160; J1250; J1644; J1940; J2003; J2150; J2250; J2270; J2405; J2997; J3475; J7030; J7040; J7050; P9047

== ENCOUNTER → 2024-06-13 | Outpatient (REF) | payer MEDICARE ==
[2024-06-13 10:40] LABS: CREATININE, SERUM 2.18 mg/dL (0.72-1.25)
== END ==
LOC: CT 09:37
PROVIDERS: ATTEND Internal Medicine
DX: I50.22 Chronic systolic (congestive) heart failure (principal); I10 Essential (primary) hypertension; I25.10 Atherosclerotic heart disease of native coronary artery without angina pectoris; E11.9 Type 2 diabetes mellitus without complications
CPT/HCPCS: 36415; 82565; 84520